=== PATIENT | female | born 1990 | race Caucasian/White ===

== ENCOUNTER 2020-10-01 16:59 | Outpatient (CLI) | payer BC, SELFPAY ==
[2020-10-01 17:57] LABS: Beta HCG Quantitative 138.31 mIU/ML
== END 2020-10-01 17:00 | disposition home or self-care (01) ==
LOC: ANHLAB 17:01
PROVIDERS: PCP Internal Medicine; Visit Provider Obstetrics & Gynecology Gynecology
DX: O02.81 Inappropriate change in quantitative human chorionic gonadotropin (hCG) in early pregnancy (principal); Z3A.00 Weeks of gestation of pregnancy not specified
CPT/HCPCS: 36415; 84702

== ENCOUNTER → 2020-10-15 10:14 | Outpatient (CLI) | payer BC, SELFPAY ==
--- NOTE | ~2020-10-15 | US_ITS ---
EXAMINATION: US OB transvaginal EXAM DATE: 10/15/2020 10:44 INDICATION: . For dating. 1st trimester. TECHNIQUE: Pelvic obstetrical transvaginal sonogram was performed by a technologist. There are [facility] grayscale and Doppler images available for interpretation. There are no earlier studies of this gestation for comparison. FINDINGS: Uterus measures 8.5 x 4.0 x 4.8 cm. There is intrauterine gestation sac. The 3 mm crown-r ump length corresponds to estimated gestational age by ultrasound of 5 weeks 6 days, estimated date o f confinement 06/11. Could not confirm cardiac activity at this time. Yolk sac is identified. Small subchorionic hemorrhage measuring 3 mm in thickness by 9 mm in diameter. Both ovaries identified an d are morphologically normal. IMPRESSION: 1. Tiny intrauterine pole, age by ultrasound 5 weeks 6 days. Could not confirm heart rate at t his time. Consider 1 or 2 week follow-up pelvic sonogram. 2. Small subchorionic hemorrhage. Reviewed, dictated and finalized at location A. IMPRESSION: 1. Tiny intrauterine pole, age by ultrasound 5 weeks 6 days. Could not c onfirm heart rate at this time. Consider 1 or 2 week follow-up pelvic sonogram . 2. Small subchorionic hemorrhage.
== END ==
PROVIDERS: Visit Provider Nurse Practitioner
DX: Z36.87 Encounter for antenatal screening for uncertain dates (principal); Z3A.01 Less than 8 weeks gestation of pregnancy; O36.8911 Maternal care for other specified fetal problems, first trimester, fetus 1
CPT/HCPCS: 76817

== ENCOUNTER 2020-10-22 10:09 | Outpatient (CLI) | payer BC, SELFPAY ==
--- NOTE | ~2020-10-22 | US_ITS ---
EXAMINATION: US OB transvaginal EXAM DATE: 10/22/2020 10:58 INDICATION: with inconclusive viability on previous US. 1st trimester. TECHNIQUE: Pelvic obstetrical transvaginal sonogram was performed by a technologist. There are mult iple grayscale and Doppler images available for interpretation. Comparison is made to prior examinati on from 10/12/2020. FINDINGS: Uterus measures 9.2 x 4.5 x 5.1 cm. There is intrauterine gestation sac. pole with heart rate confirmed at 142 beats per minute. The 10 mm crown-rump length corresponds to estimated g estational age by ultrasound of 7 weeks 1 day, estimated date of confinement 06/09/2021. Yolk sac is identified. Again there is small subchorionic hemorrhage measuring 8 mm diameter by 3 mm in thickn ess. Ovaries are morphologically normal. IMPRESSION: Early live intrauterine gestation with small subchorionic hemorrhage. Reviewed, dictated and finalized at location A. IMPRESSION: Early live intrauterine gestation with small subchorionic hemorrha ge.
== END 2020-10-22 10:10 ==
PROVIDERS: Visit Provider Obstetrics & Gynecology Gynecology
DX: O36.80X0 Pregnancy with inconclusive fetal viability, not applicable or unspecified (principal); O46.91 Antepartum hemorrhage, unspecified, first trimester; Z3A.01 Less than 8 weeks gestation of pregnancy
CPT/HCPCS: 76817

== ENCOUNTER 2020-11-05 15:20 | Outpatient (CLI) | payer BC, SELFPAY ==
--- NOTE | ~2020-11-05 | US_ITS ---
EXAMINATION: US OB transvaginal DATE: 11/05/2020 15:46 INDICATION: Follow-up subchorionic hematoma TECHNIQUE: Real-time transabdominal and transvaginal obstetric ultrasound. FINDINGS: Comparison to multiple prior studies sequentially, with oldest reviewed study dated 021. The uterus measures 8.8 x 5.4 x 6.5 cm. There is an intrauterine gestational sac, with pole swati ntified. The crown rump length measures 2.18 cm. No evidence for subchorionic hemorrhage on the curr ent study. heart tones are identified measuring 171 BPM. Ovaries are not visualized. IMPRESSION: 1. SL IUP with an EGA of 8 weeks, 6 days (EDC by initial ultrasound of 06/11/2021). 2: Interval resolution of subchorionic hemorrhage. Reviewed, dictated and finalized at location A. IMPRESSION: 1. SL IUP with an EGA of 8 weeks, 6 days (EDC by initial ultrasound of 06/11/20 21). 2: Interval resolution of subchorionic hemorrhage.
== END 2020-11-05 15:21 ==
PROVIDERS: Visit Provider Obstetrics & Gynecology Gynecology
DX: O36.8910 Maternal care for other specified fetal problems, first trimester, not applicable or unspecified (principal); Z3A.01 Less than 8 weeks gestation of pregnancy
CPT/HCPCS: 76817

== ENCOUNTER → 2021-01-07 13:48 | Outpatient (CLI) | payer BC, SELFPAY ==
--- NOTE | ~2021-01-07 | US_ITS ---
EXAMINATION: US OB >= 14 weeks Fetus DATE: 01/07/2021 14:29 INDICATION: Second trimester anatomic survey TECHNIQUE: Real-time ultrasound of the pelvis was performed. COMPARISON: None FINDINGS: There is a single living fetus in vertex presentation. The placenta is posterior and 1.2 cm from the internal cervical os. heart rate is 138 beats per minute (bpm). cardiac activity and fet al movement are noted. The amniotic fluid index is subjectively normal. The three-vessel heart view and right ventricular outflow tract are not well demonstrated. The follow ing anatomy was identified as normal: 4 chamber heart and left ventricular outflow tract 3 vessel cord cord insertion kidneys urinary bladder stomach spine diaphragm ventricles cisterna magna cerebellum The following biometric data were obtained: Biparietal diameter (BPD): 4.2 cm; head circumference (HC): 15.5 cm; abdominal circumference (AC): 12 .7 cm; femur length (FL): 2.5 cm. These measurements are concordant. Estimated weight is 219 g +/- 33 g, which correlates with the 55th percentile when 06/11/2021 i s used as estimated date of delivery. As single measurements, these parameters are each equal to the following estimated gestational ages w ith ranges of +/- 2 standard deviations: BPD: 19 weeks 0 days ( 17 weeks 2 days - 20 weeks 5 days). HC: 18 weeks 4 days ( 17 weeks 0 days - 20 weeks 0 days). AC: 18 weeks 2 days ( 16 weeks 2 days - 20 weeks 2 days). FL: 17 weeks 4 days ( 16 weeks 1 days - 18 weeks 6 days). estimated gestational age based solely on measurements from this exam is 18 weeks 3 days +/- 1 weeks 2 days. IMPRESSION: 1. Single living fetus in vertex presentation. 2. Estimated weight is 219 g +/- 33 g, which correlates with the 55th percentile when 1 is used as estimated date of delivery. 3. Low-lying placenta. 4. Right ventricular outflow tract and three-vessel heart view not well demonstrated. Reviewed, dictated and finalized at location A. IMPRESSION: 1. Single living fetus in vertex presentation. 2. Estimated weight is 219 g +/- 33 g, which correlates with the 55th per centile when 06/11/2021 is used as estimated date of delivery. 3. Low-lying placenta. 4. Right ventricular outflow tract and three-vessel heart view not well demonst rated.
== END ==
PROVIDERS: Visit Provider Obstetrics & Gynecology Gynecology
DX: Z36.9 Encounter for antenatal screening, unspecified (principal); O44.40 Low lying placenta NOS or without hemorrhage, unspecified trimester; Z3A.00 Weeks of gestation of pregnancy not specified
CPT/HCPCS: 76805

== ENCOUNTER 2021-01-12 10:09 | Observation (INO) | payer BC, SELFPAY ==
[2021-01-12 10:36] VITALS: BP 111/61; PULSE 75
[2021-01-12 10:40] VITALS: RESP 16; BMI 33.8
--- NOTE | 2021-01-12 11:17 | PM.OBTRLD ---
OB - Triage/Final Diagnosis Visit Information Comments/Additional reasons for admission: I have assessed the risk for this patient, Hannah Torres, and determined that she would benefit from observation care. Evaluation Vital signs: Vital Signs - 24 hr 01/12/21 10:36 Pulse Rate 75 Blood Pressure 111/61 Final Diagnosis (1) Spotting affecting in second trimester: Code(s): O26.852 - Spotting complicating , second trimester Status: Acute
--- NOTE | 2021-01-12 11:32 | OBADM ---
This patient, Hannah Torres, admitted to the OB room OB Post 116 for observation. Patient oriented to hospital policies and general routines including ID bracelet, bed and alarms, visiting hours, pain management, procedures, bathroom and other care routines, personal items, smoking policy, room service/diet, call light and visiting hours. Patient is encouraged to report perceived risks to care and to ask questions if she does not understand what she is told or what she should do.
--- NOTE | 2021-01-12 12:56 | PC.NURSE ---
EFM monitored with signal intermittent due to 19 weeks and movement. FHR 140's with no contractions
== END 2021-01-12 11:41 | disposition home or self-care (01) ==
PROVIDERS: Admitting Provider Obstetrics & Gynecology Gynecology; PCP Internal Medicine; Visit Provider Obstetrics & Gynecology
DX: O26.852 Spotting complicating pregnancy, second trimester (principal); Z3A.19 19 weeks gestation of pregnancy
CPT/HCPCS: G0378; G0379

== ENCOUNTER 2021-02-04 15:50 | Outpatient (CLI) | payer BC, SELFPAY ==
--- NOTE | ~2021-02-04 | US_ITS ---
EXAMINATION: US OB follow up DATE: 02/04/2021 INDICATION: Second trimester anatomic survey follow-up, low-lying placenta TECHNIQUE: Real-time ultrasound of the pelvis was performed. The interpreting radiologist was not pre sent for the study. COMPARISON: 01/07/2021 FINDINGS: There is a single living fetus in vertex presentation. The placenta is posterior and 1.6 cm from the internal cervical os. cardiac activity and movement are noted. heart rate is 147 beats per minute (bpm). The amniotic fluid index is subjectively normal. The heart views appe ar normal. The following biometric data were obtained: Biparietal diameter (BPD): 5.4 cm; head circumference (HC): 19.4 cm; abdominal circumference (AC): 17 .8 cm; femur length (FL): 3.7 cm. These measurements are concordant. Estimated weight is 489 g +/- 73 g, which correlates with the 66th percentile when 06/11/2021 i s used as estimated date of delivery. As single measurements, these parameters are each equal to the following estimated gestational ages w ith ranges of +/- 2 standard deviations: BPD: 22 weeks 4 days ( 20 weeks 6 days - 24 weeks 2 days). HC: 21 weeks 5 days ( 20 weeks 1 days - 23 weeks 1 days). AC: 22 weeks 5 days ( 20 weeks 5 days - 24 weeks 6 days). FL: 21 weeks 6 days ( 20 weeks 0 days - 23 weeks 4 days). estimated gestational age based solely on measurements from this exam is 22 weeks 2 days +/- 1 weeks 4 days. IMPRESSION: 1. Single living fetus in vertex presentation. 2. Low-lying placenta. 3. Normal heart views. 4. Estimated weight is 489 g +/- 73 g, which correlates with the 66th percentile when 1 is used as estimated date of delivery. Reviewed, dictated and finalized at location B. IMPRESSION: 1. Single living fetus in vertex presentation. 2. Low-lying placenta. 3. Normal heart views. 4. Estimated weight is 489 g +/- 73 g, which correlates with the 66th per centile when 06/11/2021 is used as estimated date of delivery.
== END 2021-02-04 15:51 ==
PROVIDERS: Visit Provider Obstetrics & Gynecology Gynecology
DX: O44.10 Complete placenta previa with hemorrhage, unspecified trimester (principal); Z3A.22 22 weeks gestation of pregnancy
CPT/HCPCS: 76816

== ENCOUNTER 2021-03-04 16:00 | Outpatient (CLI) | payer BC, SELFPAY ==
--- NOTE | ~2021-03-04 | US_ITS ---
EXAMINATION: US OB follow up DATE: 03/04/2021 16:22 INDICATION: Expected size greater than expected for estimated gestational age TECHNIQUE: Real-time ultrasound of the pelvis was performed. The interpreting radiologist was not pre sent for the study. COMPARISON: None. FINDINGS: There is a single living fetus in vertex presentation. The placenta is posterior and not low-lying w ith caudal margin 4.7 cm from the internal cervical os. heart rate is 142 beats per minute (bpm ). The amniotic fluid index is 20.5 cm, which is normal (5th%-95%: 9.7-22.1 cm at 25 weeks estimated gestational age). The following biometric data were obtained: BPD: 6.9 cm -> 27 weeks 5 days Head circumference: 25.0 cm -> 27 weeks 1 days Abdominal circumference: 21.9 cm -> 26 weeks 2 days Femur length: 4.6 cm -> 25 weeks 2 days Femur length to biparietal diameter ratio 67 which is greater than 2 standard deviations below the me an (normal range 71-87). Head circumference to abdominal circumference ratio: 1.15 (normal range 1.05-1.22). Estimated weight: 897 g (+/-) 135 g or 2 lbs. 0 oz. (+/-) 5 oz. IMPRESSION: 1. Single living fetus in vertex presentation with heart rate of 142 bpm. 2. Normal amniotic fluid index of 20.5 cm 3. Estimated weight is 51st percentile by Hadlock criteria when 06/11/2021 is used as the estim ated date of delivery (OZIEL). Please correlate with clinical information or earlier ultrasounds for mo st accurate OZIEL. 4. Femur length to biparietal diameter ratio 67 slightly greater than 2 standard deviations below the mean. Reviewed, dictated and finalized at location A. IMPRESSION: 1. Single living fetus in vertex presentation with heart rate of 142 bpm. 2. Normal amniotic fluid index of 20.5 cm 3. Estimated weight is 51st percentile by Hadlock criteria when 1 is used as the estimated date of delivery (OZIEL). Please correlate with clinic al information or earlier ultrasounds for most accurate OZIEL. 4. Femur length to biparietal diameter ratio 67 slightly greater than 2 standar d deviations below the mean.
== END 2021-03-04 16:01 ==
LOC: MICIMG 16:02
PROVIDERS: Visit Provider Obstetrics & Gynecology Gynecology
DX: O36.63X0 Maternal care for excessive fetal growth, third trimester, not applicable or unspecified (principal); Z3A.00 Weeks of gestation of pregnancy not specified
CPT/HCPCS: 76816

== ENCOUNTER 2021-04-15 11:24 | Outpatient (CLI) | payer BC, SELFPAY ==
--- NOTE | ~2021-04-15 | US_ITS ---
EXAMINATION: US OB follow up DATE: 04/15/2021 11:47 INDICATION: Size greater than dates during third trimester TECHNIQUE: Real-time ultrasound of the pelvis was performed. The interpreting radiologist was not pre sent for the study. COMPARISON: 03/04/2021 FINDINGS: There is a single living fetus in vertex presentation. The placenta is fundal. cardia c activity and movement are noted. heart rate is 136 beats per minute (bpm). The amniotic fluid index is 13.8 cm which is normal. The following biometric data were obtained: Biparietal diameter (BPD): 8.3 cm; head circumference (HC): 29.7 cm; abdominal circumference (AC): 28 .7 cm; femur length (FL): 5.9 cm. These measurements are concordant. Estimated weight is 1955 g +/- 293 g, which correlates with the 55th percentile when 06/11/2021 is used as estimated date of delivery. As single measurements, these parameters are each equal to the following estimated gestational ages w ith ranges of +/- 2 standard deviations: BPD: 33 weeks 5 days ( 30 weeks 5 days - 36 weeks 6 days). HC: 33 weeks 0 days ( 30 weeks 0 days - 36 weeks 0 days). AC: 32 weeks 5 days ( 29 weeks 5 days - 35 weeks 5 days). FL: 31 weeks 0 days ( 28 weeks 1 days - 34 weeks 0 days). estimated gestational age based solely on measurements from this exam is 32 weeks 4 days +/- 2 weeks 2 days. IMPRESSION: 1. Single living fetus in vertex presentation. 2. Normal amniotic fluid index. 3. Estimated weight is 1955 g +/- 293 g, which correlates with the 55th percentile when 021 is used as estimated date of delivery. Reviewed, dictated and finalized at location A. IMPRESSION: 1. Single living fetus in vertex presentation. 2. Normal amniotic fluid index. 3. Estimated weight is 1955 g +/- 293 g, which correlates with the 55th p ercentile when 06/11/2021 is used as estimated date of delivery.
== END 2021-04-15 11:25 ==
LOC: MICIMG 11:25
PROVIDERS: Visit Provider Nurse Practitioner
DX: O36.63X0 Maternal care for excessive fetal growth, third trimester, not applicable or unspecified (principal); Z3A.00 Weeks of gestation of pregnancy not specified
CPT/HCPCS: 76816

== ENCOUNTER 2021-04-18 13:22 | Outpatient (RCR) | payer BC, SELFPAY ==
[2021-04-18 14:11] VITALS: BP 120/78; PULSE 86
== END 2021-07-17 23:59 | disposition home or self-care (01) ==
LOC: ANHOBOP 13:22
PROVIDERS: Visit Provider Obstetrics & Gynecology Gynecology
DX: O24.419 Gestational diabetes mellitus in pregnancy, unspecified control (principal); Z3A.32 32 weeks gestation of pregnancy
CPT/HCPCS: 59025

== ENCOUNTER 2021-05-16 16:59 | Outpatient (CLI) | payer BC, SELFPAY ==
[2021-05-16 17:32] VITALS: BP 130/87; PULSE 82; PULSE 85; TEMP 36.6
[2021-05-16 17:45] VITALS: BP 135/89; PULSE 78
[2021-05-16 17:50] VITALS: BP 135/89; PULSE 78
[2021-05-16 17:55] VITALS: BP 147/84; PULSE 78
[2021-05-16 17:56] LABS: Basophils Percent Auto 0.4 % (0.2-1.2); Eosinophils Percent Auto 0.4 % (0-4.4); Hematocrit 34.1 % (37.0-47.0); Hemoglobin 11.4 g/dL (12.0-15.0); Immature Granulocyte Absolute 0.06 K/mm3 (0.00-0.031); Immature Granulocyte Percent A 0.5 % (0-0.5); Lymphocytes Absolute Auto 2.19 K/mm3 (0.9-3.2); Lymphocytes Percent Auto 19.9 % (18.3-44.2); Mean Corpuscular HGB Conc 33.4 g/dl (32-36); Mean Corpuscular Hemoglobin 30.6 pg (26-34); Mean Corpuscular Volume 91.7 fl (80-100); Monocytes Absolute Auto 0.8 K/mm3 (0.1-0.6); Monocytes Percent Auto 7.4 % (2.6-8.5); Neutrophils Absolute Auto 7.9 K/mm3 (1.3-6.7); Neutrophils Percent Auto 71.4 % (45.5-73.1); Platelet Count Result 239 k/mm3 (150-375); Red Blood Count 3.72 M/mm3 (4.2-5.4); Red Cell Distribution Width 13.3 % (11.5-14.5)
[2021-05-16 18:15] LABS: Alanine Aminotransferase 18 U/L (4-35); Albumin Level 3.1 g/dL (3.5-5.1); Alkaline Phosphatase 148 U/L (38-126); Anion Gap 6 mmol/L (8-16); Aspartate Amino Transferase 23 U/L (14-36); Bilirubin,Total 0.5 mg/dL (0.2-1.3); Blood Urea Nitrogen 9 mg/dL (7-17); Calcium 8.6 mg/dL (8.4-10.2); Carbon Dioxide 21 mmol/L (22-30); Chloride 107 mmol/L (98-107); Estimated Glomerular Filt Rate > 60; Glucose 88 mg/dL (65-110); Potassium 3.7 mmol/L (3.4-5.0); Sodium 134 mmol/L (137-145); Uric Acid 6.1 mg/dL (2.5-7.5)
[2021-05-16 18:16] VITALS: BMI 38.6
[2021-05-16 18:16] LABS: Add Urine Microscopic? YES; Appearance Urine Cloudy (Clear); Bacteria Urine Trace /hpf; Bilirubin Urine Negative (Negative); Blood Urine Negative (Negative); Color Urine Straw (Yellow); Glucose Urine UA Negative (Negative); Ketones Urine Negative (Negative); Leukocyte Esterase Ur Negative LEU/UL (Negative); Nitrate Urine Negative (Negative); Protein Urine Negative (Negative); RBC Urine 0-2 /hpf (0-2); Specific Grav Ur 1.006 (1.001-1.035); Squamous Epithelial Cell Urine Rare /hpf (Few); Urobilinogen Urine Negative mg/dL (<2.0); WBC Urine 0-3 /hpf
[2021-05-16 18:18] LABS: Creatinine Urine 41.8 mg/dL; Total Protein Urine Random 13 mg/dL; Ur Ttl Prot Creatinine Ratio 0.31 mg/mg (0-0.20)
[2021-05-16 18:37] VITALS: BP 130/78; PULSE 65
--- NOTE | 2021-05-16 18:39 | PC.NURSE ---
called DR. Harper reported lab result and BP. okay to discharge to go home with 24 hour urine.
== END 2021-05-16 18:45 | disposition home or self-care (01) ==
LOC: ANHOBOP 17:07 → ANHLDR 17:13
PROVIDERS: PCP Internal Medicine; Visit Provider Obstetrics & Gynecology Gynecology
DX: O13.9 Gestational [pregnancy-induced] hypertension without significant proteinuria, unspecified trimester (principal); Z3A.00 Weeks of gestation of pregnancy not specified
CPT/HCPCS: 36415; 59025; 80053; 81001; 82570; 84156; 84550; 85025; 99199

== ENCOUNTER 2021-05-17 18:24 | Outpatient (NON) | payer BC, SELFPAY ==
[2021-05-17 19:38] LABS: Collection Time Urine 24 HOURS
[2021-05-17 19:39] LABS: Total Volume 24 Hour Urine 1300 ml
[2021-05-17 19:45] LABS: Patient Weight 218 Lbs
[2021-05-17 19:58] LABS: Creatinine Urine 82.2 mg/dL; Total Protein Urine 24 Hr 156 mg/24hr (28-141); Total Protein Urine Random 12 mg/dL
== END 2021-05-17 18:25 | disposition home or self-care (01) ==
LOC: ANHOBOP 18:41
PROVIDERS: PCP Internal Medicine; Visit Provider Obstetrics & Gynecology Gynecology
DX: O13.9 Gestational [pregnancy-induced] hypertension without significant proteinuria, unspecified trimester (principal); Z3A.00 Weeks of gestation of pregnancy not specified
CPT/HCPCS: 81050; 82575; 84156

== ENCOUNTER 2021-05-23 17:53 | Inpatient (IN) | payer BC, SELFPAY ==
[2021-05-23] VITALS (10 sets, daily range): BP systolic 119–153; BP diastolic 58–95; PULSE 67–90; RESP 20; TEMP 36.9; BMI 39.2
[2021-05-23 18:41] LABS: Basophils Percent Auto 0.3 % (0.2-1.2); Eosinophils Absolute Auto 0.1 K/mm3 (0-0.3); Eosinophils Percent Auto 0.6 % (0-4.4); Hematocrit 35.6 % (37.0-47.0); Immature Granulocyte Absolute 0.05 K/mm3 (0.00-0.031); Immature Granulocyte Percent A 0.4 % (0-0.5); Lymphocytes Absolute Auto 2.22 K/mm3 (0.9-3.2); Lymphocytes Percent Auto 19.6 % (18.3-44.2); Mean Corpuscular HGB Conc 33.7 g/dl (32-36); Mean Corpuscular Hemoglobin 30.9 pg (26-34); Mean Corpuscular Volume 91.8 fl (80-100); Mean Platelet Volume 11.6 fl (7.4-10.4); Monocytes Absolute Auto 0.9 K/mm3 (0.1-0.6); Monocytes Percent Auto 7.7 % (2.6-8.5); Neutrophils Absolute Auto 8.1 K/mm3 (1.3-6.7); Neutrophils Percent Auto 71.4 % (45.5-73.1); Platelet Count Result 215 k/mm3 (150-375); Red Blood Count 3.88 M/mm3 (4.2-5.4); Red Cell Distribution Width 13.8 % (11.5-14.5); White Blood Count 11.3 K/mm3 (4.5-10.0)
[2021-05-23] MEDS: DINOPROSTONE 10 MG VAG INSERT VAGINAL (18:48)
[2021-05-23 18:58] LABS: Uric Acid 6.1 mg/dL (2.5-7.5)
[2021-05-23 18:59] LABS: Alanine Aminotransferase 18 U/L (4-35); Albumin Level 3.2 g/dL (3.5-5.1); Alkaline Phosphatase 152 U/L (38-126); Anion Gap 5 mmol/L (8-16); Aspartate Amino Transferase 25 U/L (14-36); Bilirubin,Total 0.6 mg/dL (0.2-1.3); Blood Urea Nitrogen 10 mg/dL (7-17); Calcium 8.6 mg/dL (8.4-10.2); Carbon Dioxide 23 mmol/L (22-30); Chloride 108 mmol/L (98-107); Estimated CRCL calculation 132 ml/min; Estimated Glomerular Filt Rate > 60; Glucose 81 mg/dL (65-110); Potassium 3.7 mmol/L (3.4-5.0); Sodium 136 mmol/L (137-145)
[2021-05-23 21:50] LABS: Glucose Point of Care 75 mg/dl (65-105)
[2021-05-23] MEDS: INSULIN HUMAN NPH (*BKC) 100 UNITS/ML 14 UNITS SUB-Q (21:53)
[2021-05-24] VITALS (259 sets, daily range): BP systolic 87–165; BP diastolic 41–133; PULSE 33–152; RESP 16–20; TEMP 36.9–39.1; O2SAT 90–100
[2021-05-24 01:14] LABS: Glucose Point of Care 90 mg/dl (65-105)
[2021-05-24 04:56] LABS: Glucose Point of Care 79 mg/dl (65-105)
[2021-05-24] MEDS: ONDANSETRON INJ 4 MG/2 ML VIAL IV PUSH ×2 (06:48→15:43)
[2021-05-24] MEDS: fentaNYL CITRATE INJ (*CRX) 100 MCG/2 ML VIAL 50 MCG IV PUSH (07:07)
--- NOTE | 2021-05-24 07:55 | WPDOBADMIT ---
Obstetrics - Admit Note Admission Note: record reviewed. No pertinent additions to the history and/or any subsequent changes in the physical findings that are not consistent with the expected course of the were found. AROm clear fluid /-2 vertex Additions to the history and/or subsequent changes in the physical findings follow. None.
[2021-05-24] MEDS: LEVOTHYROXINE SODIUM 88 MCG TABLET PO (07:57)
[2021-05-24] MEDS: LACTATED RINGERS 1,000 ML 125 ML IV CONT ×3 (07:57→18:37)
[2021-05-24] MEDS: OXYTOCIN 30 UNITS/NS 500 ML 30 UNITS/500 ML BAG 4 UNITS IV CONT (08:02)
[2021-05-24] MEDS: fentaNYL CITRATE INJ (*CRX) 100 MCG/2 ML VIAL IV PUSH (08:52)
[2021-05-24 09:08] LABS: Rapid Plasma Reagin Non-Reactive (NonReactive)
[2021-05-24 10:06] LABS: Glucose Point of Care 85 mg/dl (65-105)
--- NOTE | 2021-05-24 15:49 | WPDANESEPPF ---
Anes - Initial Pre Proc Eval Date/Time: 05/24/21 15:49 Surgeon: Lorena Harper MD Pre Op Diagnosis: IOL Patient Data Age: 30 Gender: F Height: 1.6 m Weight: 100.5 kg Last Vital Signs Temp 37.0 C 05/24/21 09:12 Pulse 99 05/24/21 15:46 Resp 16 05/24/21 09:35 BP 138/70 05/24/21 15:46 Pulse Ox 99 05/24/21 15:47 Allergies Allergy/AdvReac Type Severity Reaction Status Date / Time sumatriptan Allergy Severe Anaphylaxis Verified 05/07/21 14:43 povidone-iodine Allergy Rash Verified 05/07/21 14:43 [From Betadine] Home Medications Medication Instructions Recorded Confirmed Type Humulin N NPH U-100 Insulin 14 units SUBCUT HS 01/12/21 05/23/21 History levothyroxine [Synthroid] 88 mcg PO DAILY 01/12/21 05/23/21 History PNV cmb#95-ferrous fumarate-FA 1 tablet PO DAILY 04/18/21 05/23/21 History [] aspirin 81 mg PO DAILY 04/18/21 05/23/21 History cholecalciferol (vitamin D3) 15,000 unit PO DAILY 04/18/21 05/23/21 History [Vitamin D3] cyanocobalamin (vitamin B-12) 1,000 mcg IM WEEKLY 04/18/21 05/23/21 History ferrous sulfate 325 mg PO BID 04/18/21 05/23/21 History Claritin 1 tab-cap PO DAILY 05/07/21 05/23/21 History Laboratory Tests 05/23/21 05/23/21 05/23/21 18:34 18:34 18:34 WBC 11.3 K/mm3 H K/mm3 (4.5-10.0) RBC 3.88 M/mm3 L M/mm3 (4.2-5.4) Hgb 12.0 g/dL g/dL (12.0-15.0) Hct 35.6 % L % (37.0-47.0) MCV 91.8 fl fl (80-100) MCH 30.9 pg pg (26-34) MCHC 33.7 g/dl g/dl (32-36) RDW 13.8 % % (11.5-14.5) Plt Count 215 k/mm3 k/mm3 (150-375) MPV 11.6 fl H fl (7.4-10.4) Immature Gran % (Auto) 0.4 % % (0-0.5) Neut % (Auto) 71.4 % % (45.5-73.1) Lymph % (Auto) 19.6 % % (18.3-44.2) [place] % (Auto) 7.7 % % (2.6-8.5) Eos % (Auto) 0.6 % % (0-4.4) Baso % (Auto) 0.3 % % (0.2-1.2) Lymph # (Auto) 2.22 K/mm3 K/mm3 (0.9-3.2) [place] # (Auto) 0.9 K/mm3 H K/mm3 (0.1-0.6) Eos # (Auto) 0.1 K/mm3 K/mm3 (0-0.3) Baso # (Auto) 0.0 K/mm3 K/mm3 (0.0-0.1) Abs Immat Gran (auto) 0.05 K/mm3 H K/mm3 (0.00-0.031) Absolute Neuts (auto) 8.1 K/mm3 H K/mm3 (1.3-6.7) Absolute Nucleated RBC 0.0 K/mm3 K/mm3 (0.0-0.012) Nucleated RBC % 0.0 % % (0.0-0.2) Sodium Potassium Chloride Carbon Dioxide Anion Gap BUN Creatinine Estim Creat Clear Calc Estimated GFR Glucose POC Capillary Glucose Uric Acid 6.1 mg/dL mg/dL (2.5-7.5) Calcium Total Bilirubin AST ALT Alkaline Phosphatase Total Protein Albumin RPR Non-reactive (NonReactive) Blood Type Antibody Screen 05/23/21 05/23/21 05/23/21 18:34 18:34 21:48 WBC RBC Hgb Hct MCV MCH MCHC RDW Plt Count MPV Immature Gran % (Auto) Neut % (Auto) Lymph % (Auto) [place] % (Auto) Eos % (Auto) Baso % (Auto) Lymph # (Auto) [place] # (Auto) Eos # (Auto) Baso # (Auto) Abs Immat Gran (auto) Absolute Neuts (auto) Absolute Nucleated RBC Nucleated RBC % Sodium 136 mmol/L L mmol/L (137-145) Potassium 3.7 mmol/L mmol/L (3.4-5.0) Chloride 108 mmol/L H mmol/L (98-107) Carbon Dioxide 23 mmol/L mmol/L (22-30) Anion Gap 5 mmol/L L mmol/L (8-16) BUN 10 mg/dL mg/dL (7-17) Creatinine 0.60 mg/dL L
[2021-05-24 15:53] LABS: Glucose Point of Care 69 mg/dl (65-105)
[2021-05-24] MEDS: AMPICILLIN 2 GM/NS 100 ML 2 GM/100 ML BAG IVPB (17:14)
[2021-05-24 17:52] LABS: Glucose Point of Care 97 mg/dl (65-105)
[2021-05-24] MEDS: GENTAMICIN 80MG/SOD CHL 50 ML 80 MG/50 ML BAG 100 MG IVPB (18:37)
[2021-05-24] MEDS: AMPICILLIN 1 GM/NS 50 ML 1 GM/50 ML BAG IVPB (21:19)
--- NOTE | 2021-05-24 23:46 | P.PCNOB_ITS ---
OB - Delivery Note Procedure Delivery date: 05/24/21 Procedure: events: Gestational Diabetes (A2), Induced HTN and Labor Induction Intrapartal events: None and Febrile (borderline 100.2) Induction method: AROM, per pitocin protocol and per cervidil protocol Delivery monitor: external FHT and internal uterine Route of delivery: Laceration Description: Perineal - 2nd Degree Delivery repair: vicryl (3-0) Specimen: Yes (placenta) Quantitative Blood Loss (ml): 125 Anesthesia type: Local Disposition: floor Narrative: Called for delivery and told temp 102.4. On my arrival, 10 min. later patient did not feel warm and recheck of temp was 100.2. Informed after arrival of late decels starting after they called me to come for delivery. [place] Baby Date of : 05/24/21 Weeks of gestation at delivery: 38 Infant gender: Male Weight (pounds): 7 Weight (ounces): 7 presentation: vertex position: Left Occiput Anterior Placenta delivery description: Spontaneous cord vessel description: 3 Vessels (with short cord) score one minute: 3 score five minutes: 9
--- NOTE | 2021-05-24 23:49 | PM.OBDSVD ---
DS: Admitting Diagnosis Discharge Date 05/26/21 Admitting Diagnosis IUP 38 wks, GDMA2, PIH DS: Discharge Diagnosis Discharge Diagnosis (1) (normal spontaneous vaginal delivery): Code(s): O80 - Encounter for full-term uncomplicated delivery Status: Acute (2) GDM, class A2: Code(s): O24.419 - Gestational diabetes mellitus in , unspecified control Status: Acute (3) PIH ( induced hypertension): Code(s): O13.9 - Gestational [-induced] hypertension without significant proteinuria, unspecified trimester Status: Acute OB - DS: Summary OB Procedures : NST, PIH Mgmt and Ultrasound OB Procedures Intrapartum: Spontaneous Vag Delivery OB Procedures: : None Peripartum Data Delivery Method: Natural Vaginal Laceration Description: Perineal - 2nd Degree complications: none Status at Discharge Functional status at discharge: independent ambulation Overall status at discharge: patient is progressing back to baseline Time Spent with Patient Time attestation: Total time spent providing and/or coordinating discharge services: DS: Data Data Completed and Pending Labs on day of discharge: Labs from last 24 hours 05/24/21 05/24/21 05/24/21 17:49 15:42 09:44 POC Capillary Glucose 97 69 85 RPR 05/24/21 05/24/21 05/23/21 04:54 01:11 18:34 POC Capillary Glucose 79 90 RPR Non-reactive Discharge Plan Discharge Attending physician on discharge: Lorena Harper Discharging Clinician: Lorena Harper Anticipated Discharge Date/Time: 05/26/21 23:50 Patient Disposition: Home, Self-Care Activity: may shower and pelvic rest Diet: regular Patient Instructions: Antibiotic Form Stand Alone Forms: General Discharge Information Follow-up/Referrals: Lorena Harper MD [Physician] - 1 Week (and 6 week) Discharge Medications: New norgestimate-ethinyl estradiol [Sprintec (28)] 0.25-35 mg-mcg tablet 1 tablet PO DAILY Qty: 84 RF: 1 Continued levothyroxine [Synthroid] 88 mcg Tablet 88 mcg PO DAILY RF: 0 cyanocobalamin (vitamin B-12) 1,000 mcg/mL solution 1,000 mcg IM WEEKLY RF: 0 ferrous sulfate 325 mg (65 mg iron) Tablet 325 mg PO BID RF: 0 cholecalciferol (vitamin D3) [Vitamin D3] 125 mcg (5,000 unit) Tablet 15,000 unit PO DAILY RF: 0 Discontinued Humulin N NPH U-100 Insulin 14 units subcut HS RF: 0 aspirin 81 mg Tablet 81 mg PO DAILY RF: 0 PNV cmb#95-ferrous fumarate-FA [] 28 mg iron- 800 mcg Tablet 1 tablet PO DAILY RF: 0 Claritin 1 tab-cap PO DAILY RF: 0 Date of admission: 05/23/21 17:53 Primary Care Provider: Soraya,Florencio Crouch Admitting Provider: Lorena Harper Attending physician on admission: Lorena Harper Condition: Stable
[2021-05-25] VITALS (11 sets, daily range): BP systolic 93–141; BP diastolic 53–87; PULSE 73–93; RESP 14–18; TEMP 36–36.7; O2SAT 97–99
[2021-05-25] MEDS: OXYTOCIN 30 UNITS/NS 500 ML 30 UNITS/500 ML BAG 125 UNITS IV CONT (00:04)
[2021-05-25] MEDS: BENZOCAINE 20% AER SPR (*SP) 56 GM CAN 1 SPRAY TOPICAL ×2 (01:33→08:24)
[2021-05-25] MEDS: WITCH HAZEL 40 PADS 1 PAD TOPICAL (01:33)
[2021-05-25] MEDS: ACETAMINOPHEN 325 MG TABLET 650 MG PO (01:33)
--- NOTE | 2021-05-25 03:00 | PC.NURSE ---
Patient transferred to post room #290 via wheel chair. Support person present. Oriented to unit, room, information board, rooming in, admission packet and security measures. Patient verbalizes understanding.
[2021-05-25] MEDS: IBUPROFEN 600 MG TABLET PO ×3 (08:24→20:07)
[2021-05-25] MEDS: DOCUSATE SODIUM 100 MG CAPSULE PO (08:24)
[2021-05-25] MEDS: MULTIVIT/MIN/PREN/FOL AC/IRON TABLET 1 TAB PO (08:24)
[2021-05-25] MEDS: LEVOTHYROXINE SODIUM 88 MCG TABLET PO (08:26)
--- NOTE | 2021-05-25 11:12 | PM.OBPNVD ---
OB - PN: Subj Subjective Date/time seen: 05/25/21 11:12 Patient comments: no complaints and pain well controlled baby status: doing well OB - PN: Obj Data Labs CBC & Chem 7: 05/23/21 18:34 05/23/21 18:34 Labs: Laboratory Results - last 24 hr 05/24/21 05/24/21 15:42 17:49 POC Capillary Glucose 69 97 OB - PN A/P Assessment and Plan (1) PIH ( induced hypertension): Code(s): O13.9 - Gestational [-induced] hypertension without significant proteinuria, unspecified trimester Status: Acute Assessment and Plan: BP stable (2) GDM, class A2: Code(s): O24.419 - Gestational diabetes mellitus in , unspecified control Status: Acute Assessment and Plan: plan 2 hour GTT pp (3) Chorioamnionitis: Code(s): O41.1290 - Chorioamnionitis, unspecified trimester, not applicable or unspecified Status: Acute Assessment and Plan: afebrile since delivery (4) (normal spontaneous vaginal delivery): Code(s): O80 - Encounter for full-term uncomplicated delivery Status: Acute Plan day: 1 Plan: routine care Time Spent With Patient Time: Total time spent is greater than 50% in coordination of care (as documented) at patient's floor/unit and/or counseling patient: Exam : Bimanual exam- vagina & uterus: other (Uterus firm, nt @U)
--- NOTE | 2021-05-25 11:20 | WPDANLDPN2 ---
Anes-Prog Note L&D Date/Time: 05/25/21 11:20 Comfortable throughout: labor and delivery Neuraxial method: epidural Epidural/Spinal procedure site: tender Neuro status: Neuro function grossly intact. Cardiovascular status: normal Respiratory status: normal Airway patency: baseline Mental status: baseline Post-Op hydration status: normal Vital Signs: Last Vital Signs Temp 98.1 F 05/25/21 03:00 Pulse 84 05/25/21 03:00 Resp 18 05/25/21 03:00 BP 137/87 05/25/21 03:00 Pulse Ox 98 05/25/21 03:00 Pain score (VAS): 2 I/O: Intake & Output 05/24/21 05/25/21 05/25/21 23:59 07:59 15:59 Intake Total 1100 600 Output Total 408 Balance 1100 192 Post-procedural complaints: none Patient feedback: Patient satisfied with anesthetic care.
--- NOTE | 2021-05-26 01:04 | PC.NURSE ---
Daylight Savings Time For Daylight Savings Time Ending in the Fall - Clocks are moved back. For [facility], the time of change occurs at 0200 hrs. Time is taken from the server programmer. This entry on the patient's chart recognizes the change in time reflected during documentation. Example: 2 entries for vital signs may be charted for 0200 hrs.
[2021-05-26 04:30] VITALS: BP 138/88; PULSE 71
[2021-05-26 05:43] LABS: Hematocrit 32.7 % (37.0-47.0); Hemoglobin 10.9 g/dL (12.0-15.0)
[2021-05-26] MEDS: DOCUSATE SODIUM 100 MG CAPSULE PO (05:43)
[2021-05-26 07:45] VITALS: BP 139/87; PULSE 77; RESP 18; TEMP 36.8; O2SAT 99
[2021-05-26] MEDS: IBUPROFEN 600 MG TABLET PO (07:48)
[2021-05-26] MEDS: LEVOTHYROXINE SODIUM 88 MCG TABLET PO (07:48)
--- NOTE | 2021-05-26 09:31 | P.PNOB_ITS ---
OB - PN: Subj Subjective Date/time seen: 05/26/21 09:31 Patient comments: no complaints and pain well controlled baby status: doing well OB - PN: Obj Data Labs CBC & Chem 7: 05/26/21 05:37 05/23/21 18:34 Labs: Laboratory Results - last 24 hr 05/26/21 05:37 Hgb 10.9 L Hct 32.7 L OB - PN A/P Assessment and Plan (1) Chorioamnionitis: Code(s): O41.1290 - Chorioamnionitis, unspecified trimester, not applicable or unspecified Status: Acute Assessment and Plan: afebrile (2) PIH ( induced hypertension): Code(s): O13.9 - Gestational [-induced] hypertension without significant prot einuria, unspecified trimester Status: Acute Assessment and Plan: BP stable no diuresis yet f/u 1 wk Plan day: 2 Plan: routine care, discharge home, follow up 6 weeks and other (sprintec for bc) Time Spent With Patient Time: Total time spent is greater than 50% in coordination of care (as documented) at patient's floor/unit and/or counseling patient: Exam : Bimanual exam- vagina & uterus: other (Uterus firm, nt @U)
--- NOTE | 2021-05-26 11:37 | PC.NURSE ---
Patient viewed the discharge video Mother & Baby Care, The First Two Weeks . Patient was given the opportunity and encouraged to ask questions. Patient verbalized understanding of information shared and has been given the mother/baby guide for home reference.
[2021-05-28 07:53] VITALS: BP 170/84; PULSE 62; RESP 20; TEMP 37.2; O2SAT 98
== END 2021-05-26 14:24 | disposition home or self-care (01) | DRG 805 ==
LOC: ANHLDR 05-28 09:54 → ANHOB2 05-28 09:54
PROVIDERS: Admitting Provider Obstetrics & Gynecology Gynecology; PCP Internal Medicine; Visit Provider Obstetrics & Gynecology Gynecology
DX: O69.3XX0 Labor and delivery complicated by short cord, not applicable or unspecified (principal); O41.1230 Chorioamnionitis, third trimester, not applicable or unspecified; Z37.0 Single live birth; O75.2 Pyrexia during labor, not elsewhere classified; O24.424 Gestational diabetes mellitus in childbirth, insulin controlled; O13.4 Gestational [pregnancy-induced] hypertension without significant proteinuria, complicating childbirth; O70.1 Second degree perineal laceration during delivery; O76 Abnormality in fetal heart rate and rhythm complicating labor and delivery; Z3A.38 38 weeks gestation of pregnancy
CPT/HCPCS: 36415; 80053; 82948; 84550; 85014; 85018; 85025; 86592; 86850; 86900; 86901; 88307; A9270; J0131; J0290; J1580; J1815; J2405; J2590; J2795; J3010; J7120

== ENCOUNTER 2021-05-28 08:43 | Outpatient (CLI) | payer BC, SELFPAY ==
[2021-05-28] VITALS (10 sets, daily range): BP systolic 149–172; BP diastolic 80–89; PULSE 46–53
[2021-05-28 09:32] LABS: Basophils Absolute Auto 0.1 K/mm3 (0.0-0.1); Basophils Percent Auto 0.6 % (0.2-1.2); Eosinophils Absolute Auto 0.2 K/mm3 (0-0.3); Eosinophils Percent Auto 1.8 % (0-4.4); Hematocrit 35.2 % (37.0-47.0); Hemoglobin 11.5 g/dL (12.0-15.0); Immature Granulocyte Absolute 0.19 K/mm3 (0.00-0.031); Immature Granulocyte Percent A 1.8 % (0-0.5); Lymphocytes Percent Auto 20.7 % (18.3-44.2); Mean Corpuscular HGB Conc 32.7 g/dl (32-36); Mean Corpuscular Hemoglobin 30.6 pg (26-34); Mean Corpuscular Volume 93.6 fl (80-100); Mean Platelet Volume 9.9 fl (7.4-10.4); Monocytes Absolute Auto 0.6 K/mm3 (0.1-0.6); Monocytes Percent Auto 5.5 % (2.6-8.5); Neutrophils Absolute Auto 7.4 K/mm3 (1.3-6.7); Neutrophils Percent Auto 69.6 % (45.5-73.1); Platelet Count Result 284 k/mm3 (150-375); Red Blood Count 3.76 M/mm3 (4.2-5.4); Red Cell Distribution Width 14.2 % (11.5-14.5); White Blood Count 10.6 K/mm3 (4.5-10.0)
[2021-05-28 09:45] LABS: Alanine Aminotransferase 23 U/L (4-35); Albumin Level 2.9 g/dL (3.5-5.1); Alkaline Phosphatase 131 U/L (38-126); Anion Gap 2 mmol/L (8-16); Aspartate Amino Transferase 26 U/L (14-36); Bilirubin,Total 0.3 mg/dL (0.2-1.3); Blood Urea Nitrogen 11 mg/dL (7-17); Carbon Dioxide 30 mmol/L (22-30); Chloride 107 mmol/L (98-107); Estimated Glomerular Filt Rate > 60; Glucose 81 mg/dL (65-110); Potassium 4.3 mmol/L (3.4-5.0); Sodium 139 mmol/L (137-145); Uric Acid 6.6 mg/dL (2.5-7.5)
--- NOTE | 2021-05-28 09:55 | PC.NURSE ---
Called Dr. Harper with pt status. Informed of BPs and lab results. Orders received to give Procardia and watch for 1hr. May D/C home is systolic BP is less than 160.
[2021-05-28] MEDS: NIFEdipine 30 MG TAB.ER.24 PO (10:17)
== END 2021-05-28 11:45 | disposition home or self-care (01) ==
LOC: ANHOBOP 08:54 → ANHOBPP 08:55
PROVIDERS: PCP Internal Medicine; Visit Provider Obstetrics & Gynecology Gynecology
DX: I10 Essential (primary) hypertension (principal)
CPT/HCPCS: 36415; 80053; 84550; 85025; 99199; A9270

== ENCOUNTER 2023-09-30 14:48 | Outpatient (CLI) | payer BC, SELFPAY ==
--- NOTE | ~2023-09-30 | US_ITS ---
EXAMINATION: US thyroid DATE: 09/30/2023 14:59 INDICATION: Hypothyroidism. TECHNIQUE: Multiple ultrasound images of the thyroid were obtained. COMPARISON: Ultrasound 05/07/2016 FINDINGS: The right thyroid lobe measures 4.6 x 1.4 x 1.5 cm. The left thyroid lobe measures 4.4 x 1.0 x 1.6 c m. There is normal echotexture and echogenicity throughout the thyroid gland. No discrete nodules id entified. Normal vascular flow is present. IMPRESSION: 1. Normal thyroid. Reviewed, dictated and finalized at location A. IMPRESSION: 1. Normal thyroid.
== END 2023-09-30 14:49 ==
PROVIDERS: PCP Internal Medicine Endocrinology, Diabetes & Metabolism; Visit Provider Internal Medicine Endocrinology, Diabetes & Metabolism
DX: E03.9 Hypothyroidism, unspecified (principal)
CPT/HCPCS: 76536